=== PATIENT | male | born 1940 | race Caucasian/White ===

== ENCOUNTER → 2019-04-16 | Outpatient (CLI) | payer OTHER | END | disposition home or self-care (01) | LOC: RAH 16:29 | PROVIDERS: ATTEND Internal Medicine | DX: M19.071 Primary osteoarthritis, right ankle and foot (principal); M25.78 Osteophyte, vertebrae; M79.89 Other specified soft tissue disorders; M25.471 Effusion, right ankle | CPT/HCPCS: 73610 ==